=== PATIENT | female | born 1980 | race Caucasian/White ===

== ENCOUNTER 2017-10-21 22:59 | Emergency (ER) | payer SELFPAY ==
[~2017-10-21] VITALS: Ht 170.2 cm; Wt 79.4 kg
--- NOTE | 2017-10-21 23:41 | NUR ---
[facility] AT BEDSIDE FOR MSE.
[2017-10-22 00:04] LABS: CARBON DIOXIDE 27 mmol/L (21-32); CHLORIDE 103 mmol/L (98-107); CREATININE 0.7 mg/dL (0.6-1.3); GLUCOSE 87 mg/dL (74-106); POTASSIUM 3.8 mmol/L (3.5-5.1); UREA NITROGEN, BLOOD 12 mg/dL (7-18)
[2017-10-22 00:15] LABS: BASOPHILS # (AUTO) 0.1 K/uL (0.0-8.0); BASOPHILS % (AUTO) 0.7 % (0.0-2.0); EOSINOPHILS # (AUTO) 0.2 K/uL (0.0-0.7); EOSINOPHILS % (AUTO) 1.9 % (0.0-7.0); HEMATOCRIT 39.2 % (31.2-41.9); HEMOGLOBIN 13.3 g/dL (10.9-14.3); LYMPHOCYTES # (AUTO) 3.5 K/uL (20.0-40.0); LYMPHOCYTES % (AUTO) 41.7 % (20.5-51.5); MEAN CORPUSCULAR HGB CONC 34 g/dL (32.3-35.6); MEAN CORPUSCULAR VOLUME 88.7 fL (75.5-95.3); MONOCYTES # (AUTO) 0.6 K/uL (2.0-10.0); MONOCYTES % (AUTO) 7.1 % (0.0-11.0); NEUTROPHILS # (AUTO) 4.1 K/uL (1.8-8.9); NEUTROPHILS % (AUTO) 48.6 % (38.5-71.5); PLATELET COUNT (AUTO) 375 K/uL (179-408); RED BLOOD CELL COUNT(AUTO) 4.42 MIL/uL (3.63-4.92); WHITE BLOOD COUNT (AUTO) 8.5 K/uL (3.8-11.8)
[2017-10-22 00:16] LABS: ALANINE AMINOTRANSFERASE 15 U/L (14-59); ALKALINE PHOSPHATASE 49 U/L (50-136); ASPARTATE AMINOTRANSFERASE 17 U/L (15-37); BILIRUBIN,DIRECT < 0.1 mg/dL (0.0-0.2); BILIRUBIN,TOTAL 0.2 mg/dL (0.2-1.0)
[2017-10-22] MEDS ORDERED: MAG HYDROX/AL HYDROX/SIMETH 30 ML LIQUID UDC PO ONE (02:30)
[2017-10-22] MEDS ORDERED: PANTOPRAZOLE SODIUM 40 MG TABLET.DR PO ONE (02:30)
[2017-10-22] MEDS ORDERED: MAG HYDROX/AL HYDROX/SIMETH 30 ML LIQUID UDC ONE (03:13)
[2017-10-22] MEDS ORDERED: PANTOPRAZOLE SODIUM 40 MG VIAL ONE (03:14)
--- NOTE | 2017-10-22 03:15 | NUR ---
Patient discharged to home in stable conditon. Written and verbal after care instructions given. Patient verbalizes understanding of instructions. Ambulated from ER with stable gait. No c/o chest pain/SOB at time of dischrage. Peripheral IV removed prior to dischrage. All belongings with patient. Patient will be driven home by Taxi. VSS.
[2017-10-22 03:25] VITALS: BP 126/70
== END 2017-10-22 03:28 | disposition home or self-care (01) ==
LOC: ER 23:03
DX: R07.9 Chest pain, unspecified (principal); M54.5 Low back pain; F17.200 Nicotine dependence, unspecified, uncomplicated
CPT/HCPCS: 36415 ×2; 71045; 80048; 80076; 83880; 84484 ×2; 84703; 85025; 85379; 85730; 93005 ×2; 99285; A4663; C9113; 70030-TC

== ENCOUNTER 2018-01-18 08:19 | Emergency (ER) | payer MEDICAID, OTHER ==
[~2018-01-18] VITALS: Ht 170.2 cm; Wt 79.4 kg
[2018-01-18] MEDS ORDERED: AZITHROMYCIN 250 MG TABLET ONE (08:38)
--- NOTE | 2018-01-18 08:39 | NUR ---
PATIENT WAS SEEN BY MD FOR SORE THROAT. DC, RX AND FOLLOW UP INSTRUCTIONS GIVEN AND EXPLAINED TO PATIENT WHO STATES SHE UNDERSTANDS ALL INSTRUCTIONS.
[2018-01-18] MEDS ORDERED: AZITHROMYCIN 250 MG TABLET PO ONE (08:45)
[2018-01-19] MEDS ORDERED: AZIT250T PO (14:12)
== END 2018-01-18 08:54 | disposition home or self-care (01) ==
LOC: ER 08:19
DX: J02.9 Acute pharyngitis, unspecified (principal); F17.210 Nicotine dependence, cigarettes, uncomplicated
CPT/HCPCS: A4663; Q0144

== ENCOUNTER 2018-01-19 14:06 | Emergency (ER) | payer MEDICAID, OTHER ==
[~2018-01-19] VITALS: Ht 172.7 cm; Wt 79.4 kg
[2018-01-19] MEDS ORDERED: AZIT250T PO (14:12)
[2018-01-19] MEDS ORDERED: CEFTRIAXONE 1 G VIAL ONE (14:57)
[2018-01-19] MEDS ORDERED: LIDOCAINE HCL 1% 20 ML VIAL ONE (14:58)
[2018-01-19] MEDS: CEFTRIAXONE 1 G VIAL IM ONE (15:00)
--- NOTE | 2018-01-19 15:30 | NUR ---
Patient discharged to home in stable conditon. Written and verbal after care instructions given. Patient verbalizes understanding of instructions.pt walks in steady gait, no reaction to the antibiotic, no rashes, itching, sob.
== END 2018-01-19 15:30 | disposition home or self-care (01) ==
LOC: ER 14:06
DX: J02.0 Streptococcal pharyngitis (principal); F17.210 Nicotine dependence, cigarettes, uncomplicated; Z79.2 Long term (current) use of antibiotics
CPT/HCPCS: 36415; 86403; A4663; J0696; J3490